=== PATIENT | female | born 1975 | race American Indian/Alaskan Native ===

== ENCOUNTER 2017-10-20 21:05 | Emergency (ER) | payer SELFPAY ==
[2017-10-20 21:29] VITALS: BP 133/81; PULSE 100; RESP 20; TEMP 98.1; O2SAT 100
[2017-10-20] MEDS ORDERED: Tramadol 25 mg PO STA (21:36)
--- NOTE | 2017-10-20 21:41 | C.PDOC ---
History Of Present Illness 41 year old female PMHX Sciatica presents to the emergency room complaining of pain to her left buttock, which radiates to her left thigh and lower leg. Patient reports that she tripped two days ago, but did not fall which aggravated her sciatica. Time Seen by Provider: 10/20/17 21:26 Chief Complaint (Nursing): Lower Extremity Problem/Injury History Per: Patient Onset/Duration Of Symptoms: Days (2) Current Symptoms Are (Timing): Still Present Past Medical History Reviewed: Historical Data, Nursing Documentation, Vital Signs Vital Signs: Last Vital Signs Temp 98.1 F 10/20/17 21:14 Pulse 100 H 10/20/17 21:14 Resp 20 10/20/17 21:14 BP 133/81 10/20/17 21:14 Pulse Ox 100 10/21/17 01:56 - Medical History PMH: No Chronic Diseases Surgical History: No Surg Hx Family History: States: No Known Family Hx - Social History Hx Alcohol Use: No Hx Substance Use: No - Immunization History Hx Tetanus Toxoid Vaccination: No Hx Influenza Vaccination: No Hx Pneumococcal Vaccination: No Review Of Systems Except As Marked, All Systems Reviewed And Found Negative. Musculoskeletal: Positive for: Leg Pain (from left buttock radiating to left thigh and lower leg) Physical Exam - Physical Exam Appears: Well, Non-toxic, No Acute Distress Eye(s): bilateral: Normal Inspection, PERRL Cardiovascular: Rhythm Regular Back: Normal Inspection, No CVA Tenderness, No Muscle Spasm, No Paraspinal Tenderness, Straight Leg Raising (positive at 40 degrees) Pelvic: No Other (incontinence) Extremity: Normal ROM (full range of motion.), No Tenderness (on palpation), Other (no weakness, numbness. ) Neurological/Psych: Oriented x3, Normal Speech, Normal Cognition Gait: Steady ED Course And Treatment O2 Sat by Pulse Oximetry: 100 Progress Note: Plan: Flexeril 10mg PO. Ultram 50mg PO. Prednisone 40mg PO. Pt is refusing tramadol, states allergy to tramadol and all NSAIDS. Pt is requestinf Percocet, prednisone and flexeril. It was explained to pt that i was unable to prescribe percocet for her chronic pain and a copy of our pain management protocol was given to pt. Pt receive prednisone, flexeril and advised follow up in clinic. Pt is reqquesting to speak to attending physician in order to get a RX fofr percocet. Pt spoke to Dr Barrientos who advised pt of same. Disposition Counseled Patient/Family Regarding: Diagnosis, Need For Followup, Rx Given - Disposition Disposition: HOME/ ROUTINE Disposition Time: 21:59 Condition: STABLE Additional Instructions: Please follow up in clinic May take tylenol extra strength in addition to prednisone and flexeril as prescribed Return to ER if worse Prescriptions: Cyclobenzaprine [Cyclobenzaprine HCl] 10 mg PO HS #7 tab predniSONE [Prednisone] 20 mg PO DAILY #7 tab Instructions: Sciatica (DC) Forms: [employer] (Mongolian) - Clinical Impression Clinical Impression: Sciatica - PA / [employer] / Resident Statement MD/DO has reviewed & agrees with the documentation as recorded. - Scribe Statement The provider has reviewed the documentation as recorded by the Scribe (Jassi Ching) All medical record entries made by the Scribe were at my direction and personally dictated by me. I have reviewed the chart and agree that the record accurately reflects my personal performance of the history, physical exam, medical decision making, and the department course for this patient. I have also personally directed, reviewed, and agree with the discharge instructions and disposition.
== END 2017-10-20 22:07 | disposition home or self-care (01) ==
LOC: C.ER 21:05
DX: M54.30 Sciatica, unspecified side (principal)